=== PATIENT | female | born 1935 | race Caucasian/White ===

== ENCOUNTER 2017-10-11 23:26 | Observation (INO) ==
--- NOTE | 2017-10-11 23:46 | Emergency Department Note ---
Disposition Clinical Impression: Urinary tract infection, Compression fracture, Colicky RUQ abdominal pain Disposition: Admitted As Inpatient Condition: Good Forms: ED Satisfaction Letter Time of Disposition: 01:17 ([facility]) Abdominal Pain HPI - General Chief Complaint: ED Urogenital-Female Stated Complaint: RIGHT LOWER BACK PAIN Time Seen by Provider: 10/11/17 23:29 Source: patient Mode of arrival: ambulatory Limitations: no limitations Nursing Notes Reviewed: Yes Vital Signs Reviewed: Yes - History of Present Illness Pt Subjective Complaint: abdominal pain, flank pain Onset (ago): hour(s) Consistency: constant, Worsening Location: RUQ, R flank Pain Severity: moderate Pain Scale: 6 Quality: stabbing Improves with: rest Worsens with: eating, bowel movement, movement Context: other (recent URI ) Associated symptoms: Reports: other (Urinary incontinence). Denies: nausea, vomiting, diarrhea, fever, chills, constipation, dysuria, hematemesis, hematochezia, melena, anorexia, syncope Treatments prior to arrival: none - Related Data Home Medications Medication Instructions Recorded Confirmed Aspirin Enteric Coated [Aspirin EC] 81 mg PO DAILY 03/11/15 04/01/17 Citalopram [CeleXA] 40 mg PO DAILY 03/11/15 04/01/17 Ezetimibe/Simvastatin [Vytorin 1 tab PO DAILY 03/11/15 04/01/17 10-80 mg Tablet] Metoprolol XL (24 HR) Succ [Toprol 100 mg PO DAILY 03/11/15 04/01/17 XL] [place]-3S/Dha/Epa/Fish Oil [Fish 1 cap PO DAILY 03/11/15 04/01/17 Oil 1,200 mg Softgel] Losartan/Hydrochlorothiazide 1 each PO 10/11/17 [Hyzaar 100-25 Tablet] Previous Rx's Medication Instructions Recorded Simvastatin [Zocor] 80 mg PO HS tablet 04/06/17 Allergies Allergy/AdvReac Type Severity Reaction Status Date / Time Penicillins [PCN] AdvReac Rash Verified 03/11/15 12:14 All systems ED: reviewed and negative except as stated. Review of Systems: As Per HPI Constitutional: Denies: fever, chills, weakness Eyes: Denies: eye pain, eye discharge ENT ED: Denies: ear pain, throat pain, dental pain Cardiovascular: Denies: chest pain, palpitations, dyspnea on exertion Respiratory: Reports: cough. Denies: dyspnea, wheezes, sputum production Gastrointestinal: Reports: abdominal pain. Denies: nausea, vomiting, diarrhea Genitourinary: Reports: dysuria, frequency, other (incontinence). Denies: urgency Musculoskeletal: Reports: back pain. Denies: neck pain, joint swelling Integumentary: Denies: rash, abrasion, lesions, change in hair/nails Neurological: Reports: weakness, other (distal neuropathy). 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 Psychiatric history: Reports: anxiety, depression - Social History Smoking status: Never smoker Alcohol use: Reports: none Drug use: Reports: none Physical Exam - General Limitations: no limitations General appearance: alert, in no apparent distress, anxious, obese - Head Head exam: atraumatic, normocephalic, normal inspection - Eye Eye exam: Present: normal appearance, PERRL, EOMI - ENT ENT exam: normal exam, normal oropharynx, mucous membranes moist, TM's normal bilaterally, normal external ear exam - Neck Neck exam: Present: normal inspection, full ROM, trachea midline - Chest Chest inspection: Present: normal inspection, symmetric chest wall rise - Respiratory Respiratory exam: Present: normal lung sounds bilaterally, other (dry cough) - Cardiovascular Cardiovascular exam: Present: regular rate, normal rhythm, normal heart sounds - Abdominal Exam Abdominal exam: Present: soft, Non-Tender, distention, hyperactive bowel sounds. Absent: mass, pulsatile mass Abdominal tenderness: Present: RUQ - Expanded Upper Extremity Exam Shoulder exam: Present: normal inspection, full ROM Arm exam: Present: normal inspection, full ROM Elbow exam: Present: normal inspection, full ROM Forearm/Wrist exam: Present: normal inspection, full ROM Hand exam: Present: normal inspection, full ROM Vascular exam: Normal: capillary refill, radial pulse - Expanded Lower Extremity Exam Hip/Pelvis exam: Present: normal inspection, full ROM Upper leg exam: Present: normal inspection, full ROM Knee exam: Present: normal inspection, full ROM Lower leg exam: Present: normal inspection, full ROM Ankle exam: Present: normal inspection, full ROM Foot/toe exam: Present: normal inspection, full ROM Neurovascular/Tendon exam: Present: normal capillary refill, sensory deficit, other (decreased sennsation to the leg in stocking glove distribution) - Back Exam Back exam: Present: normal inspection, full ROM, tenderness, muscle spasm, paraspinal tenderness. Absent: vertebral tenderness - Neurological Exam Neurological exam: Present: alert, oriented X3, CN II-XII intact, normal gait - Psychiatric Psychiatric exam: Present: normal affect, normal mood - Skin Skin exam: Present: warm, dry, intact, normal color Course Course Narrative: Patient seen and examined urinalysis labs were obtained x-ray of the abdomen was obtained with results had been obtained that appears to be related possibly to the gallbladder as well as compression fracture patient family about that as well as the UTI and they are understanding will have physical therapy occupational therapy work with her due to the compression fracture patient will be seen by Dr. Dunn and started on antibiotics Vital Signs Temperature 99.0 F 10/11/17 23:29 Pulse Rate 68 10/11/17 23:29 Respiratory Rate 18 10/11/17 23:29 Blood Pressure 141/92 10/11/17 23:29 O2 Sat by Pulse Oximetry 98 10/11/17 23:29 Temperature 99.0 F 10/11/17 23:29 Pulse Rate 88 10/12/17 00:40 Respiratory Rate 20 10/12/17 00:40 Blood Pressure 160/72 10/12/17 00:40 O2 Sat by Pulse Oximetry 99 10/12/17 00:40 Oxygen Delivery Oxygen Delivery Room Air Abdominal Pain - Differential Diagnosis Differential Diagnosis: Likely: abdominal pain non-specific, calculus of kidney , hernia, small bowel obstruction, other (gall bladder and complression fracture AAA ) - Medical Records Medical records reviewed: Yes I reviewed the patient's medical records. - Lab Data Lab results reviewed: Yes I reviewed the patient's lab results. Result diagrams: 10/12/17 00:03 10/12/17 00:03 Lab Results 10/12/17 10/12/17 10/12/17 Range/Units 00:03 00:03 00:03 WBC 11.1 (4.3-11.1) K/mcL RBC 4.10 (3.82-4.97) M/mcL Hgb 12.5 (11.5-15.4) g/dL Hct 36.7 (35.3-44.9) % MCV 89.5 (83.0-100.0) fL MCH 30.5 (28.0-33.3) pg MCHC 34.1 (31.6-35.5) g/dL RDW 13.2 (11.5-14.5) % Plt Count 224 (140-400) K/mcL MPV 9.7 (9.4-12.4) fL Immature Gran % 0.7 (0-4) % Seg Neutrophils % 65.6 % Lymphocytes % 13.7 % Monocytes % 11.9 % Eosinophils % 7.4 % Basophils % 0.7 % Neutrophils # 7.3 (1.6-8.9) K/mcL Lymphocytes # 1.5 (0.6-4.6) K/mcL Monocytes # 1.3 (0.0-1.3) K/mcL Eosinophils # 0.8 H (0.0-0.6) K/mcL Basophils # 0.1 (0.0-0.2) K/mcL Sodium 134 L (136-145) mEq/L Potassium 3.7 (3.5-5.1) mEq/L Chloride 99 (98-107) mEq/L Carbon Dioxide 27 (23-29) mEq/L BUN 20 (8-23) mg/dL Creatinine 1.04 (0.60-1.20) mg/dL Est GFR ( Amer) > 60 (> 60) Est GFR (Non-Af Amer) 51 L (> 60) BUN/Creatinine Ratio 19 (6-26) Glucose 118 H (70-105) mg/dL Calculated Osmolality 282 (280-300) Calcium 9.6 (8.6-10.3) mg/dL Total Bilirubin 0.7 (0.3-1.0) mg/dL AST 28 (13-39) Units/L ALT 25 (7-52) Units/L Alkaline Phosphatase 100 (34-104) Units/L Serum Total Protein 7.0 (6.4-8.9) g/dL Albumin 3.8 (3.5-5.7) g/dL Globulin 3.2 (2.4-3.5) g/dL Albumin/Globulin Ratio 1.2 (1.1-2.2) Lipase 68 (11-82) Units/L Urine Color (Yellow) Urine Clarity (Clear) Urine pH (5.0-8.0) pH Units Ur Specific [place] (1.010-1.025) Urine Protein (Neg-Trace) mg/dL Urine Glucose (UA) (Normal) mg/dL Urine Ketones (Negative) mg/dL Urine Blood (Negative) Urine Nitrite (Negative) Urine Bilirubin (Negative) Urine Urobilinogen (Normal) mg/dL Ur Leukocyte Esterase (Negative) Urine Microscopic RBC (0-3) per hpf Urine Microscopic WBC (0-3) per hpf Ur Squamous Epith Cells (None-Few) per lpf Urine Bacteria (None-Few) per hpf Hyaline Casts (None-Few) per lpf Ur Culture Indicated? (NO) 10/12/17 Range/Units 00:45 WBC (4.3-11.1) K/mcL RBC (3.82-4.97) M/mcL Hgb (11.5-15.4) g/dL Hct (35.3-44.9) % MCV (83.0-100.0) fL MCH (28.0-33.3) pg MCHC (31.6-35.5) g/dL RDW (11.5-14.5) % Plt Count (140-400) K/mcL MPV (9.4-12.4) fL Immature Gran % (0-4) % Seg Neutrophils % % Lymphocytes % % Monocytes % % Eosinophils % % Basophils % % Neutrophils # (1.6-8.9) K/mcL Lymphocytes # (0.6-4.6) K/mcL Monocytes # (0.0-1.3) K/mcL Eosinophils # (0.0-0.6) K/mcL Basophils # (0.0-0.2) K/mcL Sodium (136-145) mEq/L Potassium (3.5-5.1) mEq/L Chloride (98-107) mEq/L Carbon Dioxide (23-29) mEq/L BUN (8-23) mg/dL Creatinine (0.60-1.20) mg/dL Est GFR ( Amer) (> 60) Est GFR (Non-Af Amer) (> 60) BUN/Creatinine Ratio (6-26) Glucose (70-105) mg/dL Calculated Osmolality (280-300) Calcium (8.6-10.3) mg/dL Total Bilirubin (0.3-1.0) mg/dL AST (13-39) Units/L ALT (7-52) Units/L Alkaline Phosphatase (34-104) Units/L Serum Total Protein (6.4-8.9) g/dL Albumin (3.5-5.7) g/dL Globulin (2.4-3.5) g/dL Albumin/Globulin Ratio (1.1-2.2) Lipase (11-82) Units/L Urine Color Yellow (Yellow) Urine Clarity Cloudy A (Clear) Urine pH 6.0 (5.0-8.0) pH Units Ur Specific [place] 1.025 (1.010-1.025) Urine Protein Negative (Neg-Trace) mg/dL Urine Glucose (UA) Normal (Normal) mg/dL Urine Ketones Negative (Negative) mg/dL Urine Blood Trace-lysed H (Negative) Urine Nitrite Positive A (Negative) Urine Bilirubin Negative (Negative) Urine Urobilinogen Normal (Normal) mg/dL Ur Leukocyte Esterase Moderate H (Negative) Urine Microscopic RBC 0-3 (0-3) per hpf Urine Microscopic WBC TNTC H (0-3) per hpf Ur Squamous Epith Cells Many H (None-Few) per lpf Urine Bacteria Many H (None-Few) per hpf Hyaline Casts Few (None-Few) per lpf Ur Culture Indicated? NO. A (NO) - Radiology Data Radiology results reviewed: Yes I reviewed the patient's radiology results. ITS Impressions Abdomen/Pelvis CT 10/12/17 23:30 IMPRESSION: No definite acute findings within the abdomen or pelvis. No nephrolithiasis or hydronephrosis. Mild nonspecific bladder wall thickening. Correlation for cystitis is recommended. Scattered colonic diverticula without evidence diverticulitis. Tiny umbilical hernia containing the outer wall of the short segment of small bowel without evidence of small bowel obstruction or significant inflammatory changes. No evidence of appendicitis. Moderate hiatal hernia. 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 Mild grade 1 anterolisthesis of L4 on L5 is probably chronic related to underlying degenerative changes. Mild probably chronic compression deformity L1 vertebral body. D/ / Armando Will MD / Armando Will MD Interpreting Provider: Armando Will MD Critical Care Time Critical Care Time: No
[2017-10-12 00:34] LABS: Basophils # 0.1 K/mcL (0.0-0.2); Basophils % 0.7 %; Eosinophils # 0.8 K/mcL (0.0-0.6); Eosinophils % 7.4 %; Hematocrit 36.7 % (35.3-44.9); Hemoglobin 12.5 g/dL (11.5-15.4); Immature Granulocytes % 0.7 % (0-4); Lymphocytes # 1.5 K/mcL (0.6-4.6); Lymphocytes % 13.7 %; Mean Corpuscular HGB Conc 34.1 g/dL (31.6-35.5); Mean Corpuscular Hemoglobin 30.5 pg (28.0-33.3); Mean Corpuscular Volume 89.5 fL (83.0-100.0); Mean Platelet Volume 9.7 fL (9.4-12.4); Monocytes # 1.3 K/mcL (0.0-1.3); Monocytes % 11.9 %; Neutrophils # 7.3 K/mcL (1.6-8.9); Platelet Count 224 K/mcL (140-400); Red Cell Distribution Width 13.2 % (11.5-14.5); Segmented Neutrophils % 65.6 %
[2017-10-12] MEDS ORDERED: *HR* OxyCODONE Immed Rel 5 MG TABLET PO ONE (00:41)
[2017-10-12 00:49] LABS: Bilirubin,Urine Negative (Negative); Blood,Urine Trace-lysed (Negative); Clarity,Urine Cloudy (Clear); Color,Urine Yellow (Yellow); Glucose,Urine (UA) Normal (Normal); Ketones,Urine Negative (Negative); Leukocyte Esterase,Urine Moderate (Negative); Nitrite,Urine Positive (Negative); Protein,Urine Negative (Neg-Trace); Specific Gravity,Urine 1.025 (1.010-1.025); Urobilinogen,Urine Normal (Normal)
[2017-10-12 00:58] LABS: Alanine Aminotransferase 25 Units/L (7-52); Albumin 3.8 g/dL (3.5-5.7); Albumin/Globulin Ratio 1.2 (1.1-2.2); Alkaline Phosphatase 100 Units/L (34-104); Aspartate Amino Transferase 28 Units/L (13-39); BUN/Creatinine Ratio 19 (6-26); Bilirubin,Total 0.7 mg/dL (0.3-1.0); Blood Urea Nitrogen 20 mg/dL (8-23); Calcium 9.6 mg/dL (8.6-10.3); Carbon Dioxide 27 mEq/L (23-29); Chloride 99 mEq/L (98-107); Globulin 3.2 g/dL (2.4-3.5); Glucose 118 mg/dL (70-105); Osmolality,Calculated 282 (280-300); Potassium 3.7 mEq/L (3.5-5.1); Sodium 134 mEq/L (136-145); eGFR For African Americans > 60 (> 60); eGFR For Non-African Americans 51 (> 60)
[2017-10-12 00:59] LABS: Bacteria,Urine Many per hpf (None-Few); Hyaline Casts,Urine Few per lpf (None-Few); Squamous Epithelial Cell,Urine Many per lpf (None-Few); WBC,Urine TNTC per hpf (0-3)
[2017-10-12 01:00] LABS: RBC,Urine 0-3 per hpf (0-3)
[2017-10-12] MEDS ORDERED: Naloxone 0.4 MG/ML INJ IVP PRN (02:04)
[2017-10-12] MEDS: *HR* OxyCODONE Immed Rel 5 MG TABLET PO SCH ×4 (02:19→20:43)
[2017-10-12] MEDS: Ondansetron 4 MG/2 ML VIAL IVP PRN (02:26)
[2017-10-12] MEDS: 0.9 % Sodium Chloride 1,000 ML IVC SCH (02:27)
[2017-10-12] MEDS ORDERED: VYTORIN PO SCH (09:00)
[2017-10-12] MEDS ORDERED: (Fish Oil 1,200 Mg Softgel) PO SCH (09:00)
[2017-10-12] MEDS: Aspirin Enteric Coated 81 MG Tablet PO SCH (09:24)
[2017-10-12] MEDS: Metoprolol XL (24 HR) Succ 50 MG TAB.ER.24H PO SCH (09:24)
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
[2017-10-12] MEDS: 0.45 % Sodium Chloride w/KCl 20 MEQ/1,000 ML MLS IVC SCH (14:49)
[2017-10-12] MEDS: Lactobacillus 1 EACH CAP.SPRINK PO SCH (20:42)
[2017-10-13] MEDS: 0.9 % Sodium Chloride 1,000 ML IVC SCH (00:27)
[2017-10-13] MEDS: cefTRIAXone 1,000 MG in Water for inj. (sterile) 20 ML 10 ML IVP SCH (00:52)
[2017-10-13] MEDS: 0.45 % Sodium Chloride w/KCl 20 MEQ/1,000 ML MLS IVC SCH ×2 (00:53→14:32)
[2017-10-13] MEDS: *HR* OxyCODONE Immed Rel 5 MG TABLET PO SCH ×4 (00:58→20:06)
[2017-10-13] MEDS: Ondansetron 4 MG/2 ML VIAL IVP PRN (08:22)
[2017-10-13] MEDS: Lactobacillus 1 EACH CAP.SPRINK PO SCH ×2 (08:22→20:06)
[2017-10-13] MEDS: Metoprolol XL (24 HR) Succ 50 MG TAB.ER.24H PO SCH (08:22)
[2017-10-13] MEDS: Aspirin Enteric Coated 81 MG Tablet PO SCH (08:22)
[2017-10-13 08:35] LABS: Basophils # 0.1 K/mcL (0.0-0.2); Basophils % 0.8 %; Eosinophils # 0.7 K/mcL (0.0-0.6); Eosinophils % 7.8 %; Hematocrit 34.3 % (35.3-44.9); Hemoglobin 11.5 g/dL (11.5-15.4); Immature Granulocytes % 0.3 % (0-4); Lymphocytes # 0.9 K/mcL (0.6-4.6); Lymphocytes % 10.3 %; Mean Corpuscular HGB Conc 33.5 g/dL (31.6-35.5); Mean Corpuscular Hemoglobin 30.5 pg (28.0-33.3); Mean Platelet Volume 9.9 fL (9.4-12.4); Monocytes % 11.5 %; Platelet Count 180 K/mcL (140-400); Red Blood Count 3.77 M/mcL (3.82-4.97); Red Cell Distribution Width 13.3 % (11.5-14.5); Segmented Neutrophils % 69.3 %
[2017-10-13 09:09] LABS: Alanine Aminotransferase 21 Units/L (7-52); Albumin 3.4 g/dL (3.5-5.7); Albumin/Globulin Ratio 1.1 (1.1-2.2); Alkaline Phosphatase 99 Units/L (34-104); Aspartate Amino Transferase 27 Units/L (13-39); BUN/Creatinine Ratio 16 (6-26); Bilirubin,Total 0.5 mg/dL (0.3-1.0); Blood Urea Nitrogen 17 mg/dL (8-23); Carbon Dioxide 29 mEq/L (23-29); Chloride 105 mEq/L (98-107); Glucose 108 mg/dL (70-105); Magnesium 1.3 mg/dL (1.6-2.6); Osmolality,Calculated 288 (280-300); Potassium 4.4 mEq/L (3.5-5.1); Sodium 138 mEq/L (136-145); Total Protein 6.4 g/dL (6.4-8.9); eGFR For African Americans > 60 (> 60); eGFR For Non-African Americans 51 (> 60)
--- NOTE | 2017-10-13 12:36 | Internal Med Progress Note ---
Date of Encounter: 10/13/17 Time of Encounter: 12:25 - Assessment and plan (1) Abdominal pain Current Visit: Yes Status: Acute Assessment and plan: October 13. Etiology not obvious. Gallbladder ultrasound not yet done. Will recheck labs in a.m. Qualifiers: Abdominal location: right lower quadrant Qualified Code(s): R10.31 - Right lower quadrant pain (2) Urinary tract infection Current Visit: Yes Status: Acute Assessment and plan: October 13. Continue Rocephin and lactobacillus. Qualifiers: Urinary tract infection type: site unspecified Hematuria presence: without hematuria Qualified Code(s): N39.0 - Urinary tract infection, site not specified (3) Essential hypertension Current Visit: No Status: Chronic Assessment and plan: October 13. Continue Toprol but hold Hyzaar. (4) Azotemia Current Visit: Yes Status: Acute Assessment and plan: October 13. Continue to hold Hyzaar as per above. Recheck labs in a.m. (5) Hypomagnesemia Current Visit: Yes Status: Acute Assessment and plan: October 13. Magnesium level low at 1.3. We will start magnesium oxide. - Subjective Interval history: October 13. She has had occasional pain recur in her right mid/lower abdomen. She has had no vomiting or diarrhea. - Constitutional Vitals: Temp Pulse Resp BP Pulse Ox 98.3 F 62 19 133/63 92 10/13/17 09:57 10/13/17 09:57 10/13/17 09:57 10/13/17 09:57 10/13/17 09:57 Exam: She is sitting in a chair at bedside appears comfortable. Her affect is bright and cheerful. Her abdomen on exam earlier today showed no masses or guarding. I reviewed her medications. I reviewed pertinent lab results with patient and family. Internal Medicine: Result - Labs CBC & Chem 7: 10/13/17 06:58 10/13/17 06:58 Labs: Short CBC 10/13/17 Range/Units 06:58 WBC 8.6 (4.3-11.1) K/mcL Hgb 11.5 (11.5-15.4) g/dL Hct 34.3 L (35.3-44.9) % Plt Count 180 (140-400) K/mcL Neutrophils # 6.0 (1.6-8.9) K/mcL BMP 10/13/17 06:58 Sodium 138 Potassium 4.4 Chloride 105 Carbon Dioxide 29 BUN 17 Creatinine 1.04 Glucose 108 H Calcium 9.0 Liver Function 10/13/17 Range/Units 06:58 Total Bilirubin 0.5 (0.3-1.0) mg/dL AST 27 (13-39) Units/L ALT 21 (7-52) Units/L Alkaline Phosphatase 99 (34-104) Units/L Albumin 3.4 L (3.5-5.7) g/dL - Impressions Impressions Abdomen/Pelvis CT 10/12/17 23:30 IMPRESSION: 1. No definite acute findings within the abdomen or pelvis. 2. No nephrolithiasis or hydronephrosis. 3. Cholelithiasis without evidence of cholecystitis. 4. Mild nonspecific bladder wall thickening. Correlation for cystitis is recommended. 5. Scattered colonic diverticula without evidence of diverticulitis. 6. Tiny umbilical hernia containing the outer wall of a short segment of small bowel without evidence of small bowel obstruction or significant inflammatory changes. 7. No evidence of appendicitis. 8. Moderate hiatal hernia. 9. 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 Mild grade 1 anterolisthesis of L4 on L5 is probably chronic and related to underlying degenerative changes. Mild probably chronic compression deformity of L1 vertebral body. D/ / 10/12/2017 07:32:41 Armando Will MD / jacqueline Interpreting Provider: Armando Will MD Consult Discharge Plan - Plan Referrals: Ngozi Pendleton MD [Primary Care Provider] - 1 week
[2017-10-13] MEDS: Magnesium Oxide 400 MG TABLET PO SCH (14:32)
[2017-10-14] MEDS: *HR* OxyCODONE Immed Rel 5 MG TABLET PO SCH ×3 (01:18→14:14)
[2017-10-14] MEDS: cefTRIAXone 1,000 MG in Water for inj. (sterile) 20 ML 10 ML IVP SCH (01:19)
[2017-10-14] MEDS: 0.45 % Sodium Chloride w/KCl 20 MEQ/1,000 ML MLS IVC SCH (01:19)
[2017-10-14 06:38] LABS: Basophils # 0.1 K/mcL (0.0-0.2); Basophils % 0.8 %; Eosinophils # 0.7 K/mcL (0.0-0.6); Hematocrit 33.5 % (35.3-44.9); Hemoglobin 11.2 g/dL (11.5-15.4); Immature Granulocytes % 0.7 % (0-4); Lymphocytes # 1.2 K/mcL (0.6-4.6); Lymphocytes % 15.7 %; Mean Corpuscular HGB Conc 33.4 g/dL (31.6-35.5); Mean Corpuscular Hemoglobin 30.6 pg (28.0-33.3); Mean Corpuscular Volume 91.5 fL (83.0-100.0); Mean Platelet Volume 9.4 fL (9.4-12.4); Monocytes % 13.4 %; Neutrophils # 4.6 K/mcL (1.6-8.9); Platelet Count 174 K/mcL (140-400); Red Blood Count 3.66 M/mcL (3.82-4.97); Red Cell Distribution Width 13.4 % (11.5-14.5); Segmented Neutrophils % 60.4 %
[2017-10-14 06:57] LABS: Alanine Aminotransferase 22 Units/L (7-52); Albumin 3.5 g/dL (3.5-5.7); Albumin/Globulin Ratio 1.1 (1.1-2.2); Alkaline Phosphatase 98 Units/L (34-104); Aspartate Amino Transferase 27 Units/L (13-39); BUN/Creatinine Ratio 14 (6-26); Bilirubin,Total 0.5 mg/dL (0.3-1.0); Blood Urea Nitrogen 14 mg/dL (8-23); Calcium 8.9 mg/dL (8.6-10.3); Carbon Dioxide 27 mEq/L (23-29); Chloride 104 mEq/L (98-107); Globulin 3.1 g/dL (2.4-3.5); Glucose 102 mg/dL (70-105); Osmolality,Calculated 287 (280-300); Potassium 4.3 mEq/L (3.5-5.1); Sodium 138 mEq/L (136-145); Total Protein 6.6 g/dL (6.4-8.9); eGFR For African Americans > 60 (> 60); eGFR For Non-African Americans 52 (> 60)
[2017-10-14] MEDS: Aspirin Enteric Coated 81 MG Tablet PO SCH (12:52)
[2017-10-14] MEDS: Metoprolol XL (24 HR) Succ 50 MG TAB.ER.24H PO SCH (12:53)
[2017-10-14] MEDS: Magnesium Oxide 400 MG TABLET PO SCH (12:53)
[2017-10-14] MEDS: Lactobacillus 1 EACH CAP.SPRINK PO SCH (12:53)
--- NOTE | 2017-10-14 14:05 | Discharge Summary ---
Date of Encounter: 10/14/17 Time of Encounter: 13:55 - Discharge Diagnosis (1) Abdominal pain Priority: Primary Status: Acute Qualifiers: Abdominal location: right lower quadrant Qualified Code(s): R10.31 - Right lower quadrant pain (2) Urinary tract infection Priority: Secondary Status: Acute Qualifiers: Urinary tract infection type: site unspecified Hematuria presence: without hematuria Qualified Code(s): N39.0 - Urinary tract infection, site not specified (3) Essential hypertension Priority: Secondary Status: Chronic (4) Azotemia Priority: Secondary Status: Acute (5) Hypomagnesemia Priority: Secondary Status: Acute Hospital course: Ms. Stevens is a 82 year old female who came to emergency room stating she had sudden onset of discomfort in her right lower anterolateral abdomen and back area approximately 9:30 PM while at leisure. She lay down in the bed briefly without improvement. She came to emergency room and was evaluated and felt to have UTI. Gallstones were seen on abdominal CT. She was admitted to [facility] floor for ongoing care needs. Initial orders were written by the emergency room physician. I saw her on October 12 and performed the history and physical. I reviewed the abdominal CT from emergency room with patient and family. This showed no definite acute findings. There was cholelithiasis without evidence of cholecystitis. There was mild nonspecific bladder wall thickening. 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 Abdominal ultrasound was done to further evaluate the gallbladder. The ultrasound showed no evidence of acute cholecystitis. She remained afebrile and follow-up labs showed normal LFTs and WBC with no left shift. The etiology of the pain was not determined. The pain seemed to lessen gradually during hospitalization. She was started empirically on Rocephin for UTI. Urine culture was ordered but apparently was not collected. She will be prescribed Ceftin with lactobacillus for 3 additional days at discharge. Hyzaar was held and azotemia improved slightly with BUN and creatinine being 14 and 1.01 respectively by day of discharge. Blood pressure did not change significantly and she will remain off medication at discharge. There were no other new problems and on October 14 she felt improved and stable for discharge home. She will follow with her PCP Dr. Pendleton within 1 week. I explained to the patient and her 2 daughters on the day of discharge that the etiology pain was not obvious that further workup could be done if pain persists. - Time Spent with Patient Total time spent providing and/or coordinating discharge services: - Discharge Medications Prescriptions: Cefuroxime PO [Ceftin] 500 mg PO Q12HR #6 tablet Lactobacillus [Culturelle] 1 each PO BID #6 cap.sprink OxyCODONE Immed Rel [Roxicodone 5 MG] 5 mg PO Q6H PRN 3 Days #12 tablet PRN Reason: Pain Home Medications: Aspirin Enteric Coated [Aspirin EC] 81 mg PO DAILY 03/11/15 [History] Citalopram [CeleXA] 40 mg PO DAILY 03/11/15 [History] Ezetimibe/Simvastatin [Vytorin 10-80 mg Tablet] 1 tab PO DAILY 03/11/15 [History ] Metoprolol XL (24 HR) Succ [Toprol XL] 100 mg PO DAILY 03/11/15 [History] [place]-3S/Dha/Epa/Fish Oil [Fish Oil 1,200 mg Softgel] 1 cap PO DAILY 03/11/15 [ History] Simvastatin [Zocor] 80 mg PO HS tablet 04/06/17 [Rx] Cefuroxime PO [Ceftin] 500 mg PO Q12HR #6 tablet 10/14/17 [Rx] Lactobacillus [Culturelle] 1 each PO BID #6 cap.sprink 10/14/17 [Rx] OxyCODONE Immed Rel [Roxicodone 5 MG] 5 mg PO Q6H PRN 3 Days #12 tablet [Rx] Allergies/Adverse Reactions: 3 Allergy/AdvReac Type Severity Reaction Status Date / Time Penicillins [PCN] AdvReac Rash Verified 03/11/15 12:14 Date of admission: 10/12/17 01:29 Primary care physician: Ngozi Pendleton - Constitutional Vitals: Temp Pulse Resp BP Pulse Ox 98.0 F 65 16 136/68 92 10/14/17 10:00 10/14/17 10:00 10/14/17 10:00 10/14/17 10:00 10/14/17 10:00 - Patient Status Disposition: Home Health Service Condition: Good - Discharge Instructions Follow Up With: Ngozi Pendleton MD [Primary Care Provider] - 1 week - Diet and Activity Activity: resume usual activities as tolerated Diet: advance to your usual diet
[2017-10-14 14:09] VITALS: BP 128/66
--- NOTE | 2017-10-14 14:21 | Physician Discharge Referral ---
Home Health/Hosp Referral Info Transfer to: Home Health Attending Provider: Shaun Provider in Charge Post Discharge: PCP Vinicio) - Diagnosis (1) Abdominal pain Priority: Primary Status: Acute (2) Urinary tract infection Priority: Secondary Status: Acute (3) Essential hypertension Priority: Secondary Status: Chronic (4) Azotemia Priority: Secondary Status: Acute (5) Hypomagnesemia Priority: Secondary Status: Acute - Respiratory Orders Smoking Cessation: Smoking cessation has been advised. For more information, call the [place] Tobacco Quit Line at 5-932-HZQH-NOW. - Diet/Nutrition Diet/Nutrition Orders: Cardiac - Activity Activity Orders: Walker - Services Needed Following services are medically necessary services: Nursing, Home Health Aide, Physical Therapy, Occupational Therapy - Transfer Medications Prescriptions: Cefuroxime PO [Ceftin] 500 mg PO Q12HR #6 tablet Lactobacillus [Culturelle] 1 each PO BID #6 cap.sprink OxyCODONE Immed Rel [Roxicodone 5 MG] 5 mg PO Q6H PRN 3 Days #12 tablet PRN Reason: Pain Home Medications: Aspirin Enteric Coated [Aspirin EC] 81 mg PO DAILY 03/11/15 [History] Citalopram [CeleXA] 40 mg PO DAILY 03/11/15 [History] Ezetimibe/Simvastatin [Vytorin 10-80 mg Tablet] 1 tab PO DAILY 03/11/15 [History ] Metoprolol XL (24 HR) Succ [Toprol XL] 100 mg PO DAILY 03/11/15 [History] [place]-3S/Dha/Epa/Fish Oil [Fish Oil 1,200 mg Softgel] 1 cap PO DAILY 03/11/15 [ History] Simvastatin [Zocor] 80 mg PO HS tablet 04/06/17 [Rx] Cefuroxime PO [Ceftin] 500 mg PO Q12HR #6 tablet 10/14/17 [Rx] Lactobacillus [Culturelle] 1 each PO BID #6 cap.sprink 10/14/17 [Rx] OxyCODONE Immed Rel [Roxicodone 5 MG] 5 mg PO Q6H PRN 3 Days #12 tablet [Rx] Allergies/Adverse Reactions: 3 Allergy/AdvReac Type Severity Reaction Status Date / Time Penicillins [PCN] AdvReac Rash Verified 03/11/15 12:14 Certification: Further, I certify that my clinical findings support that this patient is homebound (i.e. absences from home require considerable and taxing effort and are for medical reasons or buddhism services or infrequently or short duration when for other reasons) because: Homebound Reason: Leaving home requires considerable and taxing effort due to condition (Abdominal pain, DJD) Attestation: My signature below is to certify that this patient is under my care and that I, or nurse practitioner, or a physician's religious assistant working with me, has a face-to -face encounter with this patient.
== END 2017-10-14 16:15 | disposition home health service (06) ==
LOC: EMEROOPIK 23:26 → INPPIK 23:26
PROVIDERS: ADMIT Internal Medicine; ATTEND Internal Medicine